=== PATIENT | male | born 1960 | race Caucasian/White ===

== ENCOUNTER 2021-12-23 09:01 | Outpatient (CLI) | payer OTHER, SELFPAY ==
--- NOTE | 2021-12-23 09:15 | CRLHL7_ITS ---
For Patients: As a result of the Century Cures Act, medical imaging exams and procedure reports are released immediately into your electronic medical record. You may view this report before your referring provider. If you have questions, please contact your health care provider. Indication: Right hip pain. Comparison: None. Procedure : Informed consent was obtained. The site was marked. Time-out was performed. The skin of the right hip was cleansed with ChloraPrep. A sterile drape was placed. 8 cc of 1 percent lidocaine was administered for superficial anesthesia. Subsequently a 22 gauge spinal needle was introduced into the right hip joint under intermittent fluoroscopic guidance. Injection of 6 cc nonionic Omnipaque 240 contrast confirmed intra-articular location. Subsequently 11 cc of dilute gadolinium were injected. The needle was removed and hemostasis achieved with direct pressure. A dressing was placed. The patient tolerated the procedure well without immediate complication and was immediately sent to MRI for imaging. Total fluoroscopy time 35 seconds. Impression: Successful fluoroscopically guided right hip arthrogram for MRI. Dictated by Benedict Springer MD @ 12/23/2021 10:25:50 AM (Electronically Signed)
--- NOTE | 2021-12-23 10:15 | MR_ITS ---
[address] [address] Phone:?[phone] Fax:?[phone] Referring Physician Information: John Telles M.D. [id number] [facility] [address] Phone:?[phone] Fax:?[phone] Patient:?Donnell Owen D.O.B:?1960 Sex:?Male Phone:?[phone] [facility] MRN:?[id number] Exam Date:?12/23/2021 ? EXAM: MR ARTHROGRAM of the RIGHT HIP CLINICAL INFORMATION: Male, 61 years old, with right hip pain. INDICATION: Evaluate for labral tear. PRIOR SURGERY: None reported. PLAIN FILMS: None available. COMPARISONS: No prior MRIs available. TECHNICAL INFORMATION: Exam performed after injection of gadolinium-based contrast into the right hip joint, reported separately. Using a 1.5T MR scanner: coronals: PD, T2, T1FS sagittals: PD, T2, T1FS axial obliques: PD axials: PDFS coronals of pelvis: T1, STIR SEDATION: None. CONTRAST: No intravenous contrast was administered. FINDINGS: Hip joint: Gadolinium-based contrast distends the hip joint, reflecting successful arthrography. Mild to moderate generalized thinning of articular cartilage throughout the right hip joint, without convincing full-thickness chondral defect/loss. No intra-articular bodies. Labrum: Intrasubstance degeneration and complex tearing is present within the anterior through posterosuperior labrum (axial PD oblique series 8 images 7-12). This is associated with a complex posterosuperior parameniscal cyst measuring 1.1 x 1.1 x 2.9 cm (axial PDFS series 9 image 8 and coronal STIR series 3 image 19). Proximal femur: Broad-based avascular necrosis, which involves nearly the entire femoral head, bilaterally, extending to the femoral necks (coronal T1 series 2 images 13-18). This is associated with moderate-marked bone marrow edema throughout the right femoral head and neck, with the appearance of subtle subchondral fracturing in the superolateral aspect of the femoral head (coronal PD series 6 image 13 and coronal STIR series 3 images 12-19). Mild marginal osteophytosis. There is loss of normal femoral head/neck junction offset with mild cam morphology anterosuperiorly. The maximum angle measures 65? (axial PD oblique series 8 image 11). Acetabulum: Mild subchondral edema is present in the periphery of the acetabulum with mild/moderate marginal osteophytosis. No stress/occult fracture or periacetabular ossicle. Version: Normal acetabular anteversion. Coverage: Right lateral center edge (CE) angle measures approximately 23? (normal 25?-39?), midline coronal series 6 image 12, corrected for pelvic obliquity. Ligamentum teres: Ligamentum teres is intact and unremarkable. Iliofemoral ligament: The iliofemoral ligament is intact without thickening. Pelvis osseous structures: Sacrum: No stress/insufficiency fractures or marrow edema/pathology. Sacroiliac joints: No demonstrable sacroiliitis. Pubic rami: No stress/insufficiency fractures or marrow edema/pathology. Symphysis pubis: No ongoing osteitis pubis. Myotendinous structures: Gluteus abductors: No convincing insertional tendinopathy or tear of gluteus minimus or medius. Adductors: No demonstrable tendinopathy or strain/tear. Hamstrings: Moderate marked common hamstrings tendinopathy with intermediate grade partial-thickness deep surface tearing, bilaterally (right greater than left (coronal STIR series 3 images 22-25). Flexors: Intact iliopsoas and rectus femoris, without strain/tear. External rotators: Intact, without demonstrable ischiofemoral impingement. Gluteal aponeurotic fascia and IT band: Unremarkable. Bursae: No demonstrable trochanteric, iliopsoas, or iliopectineal bursitis. Intrapelvic contents: Free fluid: No free fluid seen within the pelvis. Pelvic viscera: No discrete intrapelvic mass is identified. Lymph nodes: No lymphadenopathy by MRI size criteria. Neurovascular structures: No discrete cyst, mass or other compression upon the portions visualized of sciatic or femoral nerves. Lumbar spine:?Disc desiccation and moderate disc height loss is present at L5- S1. IMPRESSION: 1. 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 There is moderate-marked bone marrow edema throughout the right femoral head and neck with the suggestion of subtle subchondral fracturing in the superolateral aspect of the femoral head. 2. Mild osteoarthritis of the right hip joint. 3. Moderate-marked common hamstrings tendinopathy with intermediate grade partial-thickness deep surface tearing, bilaterally, right greater than left. 4. Intrasubstance degeneration and complex tearing of the anterior through posterosuperior labrum with a complex posterosuperior paralabral cyst measuring 1.1 x 1.1 x 2.9 cm. 5. Moderate lower lumbar spondylosis at L5-S1, which is incompletely evaluated on this study. Further evaluation with a dedicated lumbar spine MRI could be considered, as clinically indicated. BC Electronically signed on 12/23/2021 1:52:00 PM by Jesus Presley M.D.
== END 2021-12-23 09:02 | disposition home or self-care (01) ==
LOC: RAD 09:01
PROVIDERS: PCP Family Medicine; Visit Provider Orthopaedic Surgery
DX: M25.551 Pain in right hip (principal); R25.1 Tremor, unspecified; M16.11 Unilateral primary osteoarthritis, right hip; M47.896 Other spondylosis, lumbar region; S73.101A Unspecified sprain of right hip, initial encounter
CPT/HCPCS: 20610; 73722; 77002; A9575; Q9966

== ENCOUNTER 2022-03-06 09:42 | Outpatient (REF) | payer OTHER, SELFPAY | END 2022-03-06 09:43 | disposition home or self-care (01) | LOC: NPLBINS 09:42 | PROVIDERS: PCP Family Medicine; Visit Provider Orthopaedic Surgery | DX: Z01.818 Encounter for other preprocedural examination (principal) | CPT/HCPCS: 36415; 86850; 86900; 86901 ==

== ENCOUNTER 2022-03-08 06:50 | Day surgery (SDC) | payer OTHER, SELFPAY ==
[2022-03-08] VITALS (25 sets, daily range): BP systolic 117–164; BP diastolic 73–102; PULSE 79–98; RESP 16–18; TEMP 35.6–36.7; O2SAT 6–100; BMI 30.2
[2022-03-08] MEDS: ACETAMINOPHEN 500 MG TABLET 1000 MG PO ×3 (07:08→19:25)
[2022-03-08] MEDS: CELECOXIB 200 MG CAPSULE PO ×2 (07:08→20:42)
[2022-03-08] MEDS: OXYCODONE (CR) 10 MG TAB.ER.12H PO (07:08)
[2022-03-08] MEDS: SODIUM CHLORIDE 0.9 % (FLUSH) 10 ML SYRINGE IVF (07:15)
[2022-03-08] MEDS: LACTATED RINGERS 1000 ML 1,000 ML 100 ML IV ×2 (07:15→09:10)
--- NOTE | 2022-03-08 07:53 | SUR.PREOP ---
TIME?OUT:?0754 PT/Anyi SINGER RN/Shyam BRIAN CRNA VERIFICATION?OF?SURGICAL?SITE,?PROCEDURE,?AND?CONSENT OBTAINED?PRIOR?TO?INVASIVE?PROCEDURE.
[2022-03-08] MEDS: MIDAZOLAM HCL 1 MG/ML inj IVP (07:56)
[2022-03-08] MEDS: fentaNYL 100 MCG/2 ML inj IVP (07:56)
--- NOTE | 2022-03-08 08:15 | CRLHL7_ITS ---
For Patients: As a result of the Century Cures Act, medical imaging exams and procedure reports are released immediately into your electronic medical record. You may view this report before your referring provider. If you have questions, please contact your health care provider. INDICATION: Follow up hip arthroplasty. Intraoperative evaluation. TECHNIQUE: Fluoroscopically guided intraoperative evaluation of the right hip. FINDINGS: 54.7 seconds fluoroscopy time utilized intraoperatively. Two spot views of the right hip were obtained demonstrating a right hip arthroplasty. IMPRESSION: Intraoperative right hip arthroplasty. 54.7 seconds fluoroscopy time utilized. Dictated by Malik Erazo MD @ 03/08/2022 11:01:25 AM (Electronically Signed)
--- NOTE | 2022-03-08 08:54 | W.PM.NB ---
Nerve Block Nerve Block Time Seen by Provider: 08:15 Date Seen: 03/08/22 Type of block requested by surgeon for post-operative analgesia: EVELYN/LFCN Side: right Time out performed: Yes Verification of patient name: Yes Verification of date of : Yes Site marking: site marked Name of person performing procedure: Benjaimn Fish Continuous monitoring Was continuous monitoring of O2 sat, B/P, monitor car operator, recorded every 15 minutes?: Yes Procedure Checklist: sterile prep, needles and gloves Ultrasound guided. Images saved: Yes Medications given in 5ml increments after negative aspiration: Ropivicaine %: 0.5 mL: 30 Needle gauge: 20 Decadron (mg): 10 Precedex (mcg): 25 Patient tolerated procedure well: Yes Additional comments: Injected in 5ml increments after negative aspiration. Block Charges Block Charge (with Pro Fee): Other Periph Nerve Block Use of Ultrasound Machine for Block: Yes- US Guidance/pain block
--- NOTE | 2022-03-08 09:09 | W.ANESCHARGE ---
Anesthesia Charges Start Date/Time Anesthesia Start Date: 03/08/22 Anesthesia Start Time: 08:27 Stop Date/Time Anesthesia Stop Date: 03/08/22 Anesthesia Stop Time: 10:57 Summary Emergency: No
--- NOTE | 2022-03-08 10:23 | CRLHL7_ITS ---
For Patients: As a result of the Century Cures Act, medical imaging exams and procedure reports are released immediately into your electronic medical record. You may view this report before your referring provider. If you have questions, please contact your health care provider. INDICATION: Follow up right hip arthroplasty. TECHNIQUE: AP pelvis and cross table lateral view of the right hip. COMPARISON: Correlation is made with intraoperative images from the same date. FINDINGS: Right hip arthroplasty. The components are adequately aligned and well seated. Air within the soft tissues of the proximal lateral thigh. IMPRESSION: Right hip arthroplasty. The components are adequately aligned and well seated. Dictated by Malik Erazo MD @ 03/08/2022 11:41:12 AM (Electronically Signed)
--- NOTE | 2022-03-08 10:26 | PM.ORPRC ---
Procedure Note Date of procedure: 03/08/22 Procedure: SURGEON: John Telles MD VAMP PRESSER: Andra Ramírez PA-C, AMADA Higgins PREOPERATIVE DIAGNOSIS: Right hip osteonecrosis/osteoarthritis POSTOPERATIVE DIAGNOSIS: Right hip osteonecrosis/osteoarthritis NAME OF OPERATION: Right total hip arthroplasty IMPLANTS: 1. [employer] # 56 sector ingrowth cup 2. 36 x 56 +4 neutral polyethylene 3. Actis # 9 standard collared ingrowth stem 4. 36 + 5 ceramic femoral head ANESTHESIA: General ESTIMATED BLOOD LOSS: 200 cc COMPLICATIONS: None SPECIMENS: None DRAINS: None PREOPERATIVE ANTIBIOTICS: Ancef 2 grams INDICATIONS: The patient is a 62-year-old with a longstanding history of severe, unrelenting right hip pain secondary to end-stage right hip osteoarthritis. Despite appropriate nonoperative management, including activity modification, use of an assist device, anti-inflammatories, [id number] pain medication, physical therapy and injections, they continue to have pain and disability. Operative intervention was offered. The risks, benefits and expected outcomes were discussed in detail. These included but were not limited to: Infection, bleeding, injury to blood vessel or nerve, venous thromboembolism. All questions were answered to their satisfaction. Use of an medical assistant supervisor was necessary throughout the case for patient positioning and safety, soft tissue retraction and closure. PROCEDURE: The patient was placed supine on the [place] table. General anesthesia was administered. The medical assistant supervisor made sure the patient was properly positioned. The right hip was prepped and draped in the usual sterile fashion. The image intensifier was brought in for a perfect AP pelvis and a perfect double tear drop AP view of each hip which were used for intraoperative templating with our fluoroscopic guide. An oblique incision was made 3 cm distal and 3 cm lateral to the anterior superior iliac spine. The medical assistant supervisor retracted the soft tissues to protect them. Subcutaneous dissection was taken with electrocautery to the superficial fascia. The fascia was divided in line with the incision. Blunt dissection was carried medially to the tensor fascia tiara and sartorius interval. Deep dissection was carried with electrocautery. The circumflex vessels were cauterized and divided. The capsule was exposed and then divided in a T-fashion, tagged with #1 Ethibond sutures. Retractors were placed in the joint, held by the medical assistant supervisor. The corkscrew was placed in the femoral head. The neck cut was made in the subcapital region. We made a second neck cut more distal. The napkin ring of bone was removed. The femoral head was removed intact. Acetabular retractors were placed, held by the medical assistant supervisor. The labrum was sharply debrided. The capsule was released. The 43 mm reamer was used to the true medial wall. We then enlarged in 2 mm increments using the image intensifier for our reamer placement. We impacted the cup which had excellent purchase. We placed the hole eliminator and the polyethylene. Attention was then turned to the proximal femur. The limb was placed in 140 degrees of external rotation, maximum extension and adduction. A significant amount of time was spent releasing the capsule to allow us to deliver the femur into the wound and complete the femoral side safely. Retractors were held by the medical assistant supervisor throughout the femoral preparation. The spreader box operator and canal finder were used. Broaches were used to a stable size. The calcar reamer was used. Trial components were placed. The hip was reduced and was found to be stable with appropriate soft tissue tension. Length and offset had been nicely restored using the image intensifier and our fluoroscopic guide. Trial components were removed. The stem was impacted. We placed the femoral head. Again, the hip was reduced and was found to be stable with appropriate soft tissue tension. Length and offset had been nicely restored. The medical assistant supervisor did a three minute dilute Betadine solution soak. The medical assistant supervisor irrigated the wound with 3 liters of normal saline via pulse lavage. The medical assistant supervisor repaired the anterior capsule with a #1 Vicryl and our previously placed Ethibond sutures. The medical assistant supervisor closed the fascia over the tensor fascia tiara with a #1 PDO Stratafix, subcutaneous tissues with 2-0 Vicryl, skin with a running 3-0 Stratafix and glue. A dry dressing was applied by the medical assistant supervisor. Sponge and needle counts were correct x 2. The patient tolerated the procedure well; there were no apparent complications. They were awakened and extubated in the operating room, sent to the Post-Anesthesia Care Unit in satisfactory condition. PLAN: 1. The patient will be mobilized with physical therapy, weight-bearing as tolerates 2. Xarelto x 5 days then aspirin x 30 days will be used for DVT prophylaxis 3. The patient will be discharged once medically appropriate
[2022-03-08] MEDS: fentaNYL 100 MCG/2 ML inj 50 MCG IVP (11:02)
[2022-03-08] MEDS: LACTATED RINGERS 1000 ML 1,000 ML 75 ML IV (12:49)
[2022-03-08] MEDS: OXYCODONE 5 MG TABLET PO ×5 (12:55→22:43)
--- NOTE | 2022-03-08 14:14 | PC.NURSE ---
End of shift note: Patient was a right MATTIE today. Returned to M/S at 1130 today. Denies nausea. Pain controlled with PO medications. No void yet. Taking PO fluids and food. Worked with PT and up to chair with assist of 1 and walker. PIV in left forearm patent and intact. LR running at 75ml/hr. Incision is clean, dry and intact. Lung sounds clear. Hypoactive bowel sounds. LBM 03/07/22. Plans to return home with help of tomorrow.
[2022-03-08] MEDS: CEFAZOLIN 2 GM in 0.9 % SODIUM CHLORIDE Mini-bag 100 ML IVPB ×2 (15:29→22:41)
--- NOTE | 2022-03-08 15:44 | PM.IMCN1 ---
Date of Consult Patient: Dilip Patient Consult date: 03/08/22 Primary Care Provider: Darren Thompson MD Consult Narrative Reason for consult: Assist with postoperative management of medical conditions Narrative: Donnell Owen is a 62 year old man with known bilateral hip avascular necrosis and osteoarthritis, with significant pain on the right compared to the left. No injury predating this avascular necrosis. On the other hand does drink alcohol daily and it is suspected that the avascular necrosis is in consequence to the same. Pain became particularly symptomatic and problematic in September of 2021 has only worsened over time. Undergoes elective right total hip arthroplasty today. Estimated blood loss listed as 200 mL. Pain is adequately controlled at this time. Tolerating gradual increase in activities at this juncture. Review of Systems Status of ROS: Reports: 10 or more systems reviewed and unremarkable except as noted in History and below Narrative: Denies chest heaviness, pressure, tightness, or pain. Denies cough, dyspnea at rest, dyspnea with exertion, paroxysmal nocturnal dyspnea, or orthopnea. Denies syncope or near-syncope. Denies dependent edema. Denies palpitations or chest fluttering. Bowel and bladder function are satisfactory. Denies blood loss of any sort. No recent trauma or injury. No recent febrile illness. No recent gout attack. Denies fevers, rigors, diaphoresis. Denies myalgias or arthralgias. No skin changes or rashes. Denies any focal motor neurologic deficits. Denies polyuria, polydipsia, polyphagia. Denies heat or cold intolerance. Denies any limitations in ability to carry out desired activities except for the hip pain. Twice retired. 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 Lives with his . Designates his as his power of workers compensation defense attorney for health should that be required. Requests full resuscitation in the event of cardiopulmonary demise in the hospital, adding that he does not wish to be kept alive in a persistent vegetative state. Tells me that he has cut back on his alcohol consumption. Denies any alcohol withdrawal symptoms. [facility] Medical History Abnormal liver enzymes Anxiety Chronic anemia Chronic leukopenia Daily consumption of alcohol Depression Diverticulosis Hepatic steatosis History of renal calculi (~06/2013) Internal hemorrhoid Pseudogout Surgical History History of bunionectomy of both great toes (~2017) Status post left rotator cuff repair (~2016) Status post vasectomy Family History Mother Rheumatoid arthritis Father Lung cancer Brother Rapid heart beat Social History Smoking Status: Never smoker Do you use any of these nicotine containing products: None Second hand tobacco smoke exposure: No How often do you have a drink containing alcohol: 4 or more times a week Alcohol type: beer and wine How many standard drinks containing alcohol do you have on a typical day: 1 or 2 How often do you have six or more drinks on one occasion: Never AUDIT-C Alcohol total score: 4 Non-prescribed substance use: denies use Caffeine: Yes (coffee, 1-2 cups/morning) Are you now , , , , never or living with a partner: Social isolation score (0-1 are the most socially isolated patients): 1 Meds Home Medications and Allergies Home Medications Medication Instructions Recorded Confirmed Type colchicine 0.6 mg tablet 0.6 mg PO DAILY PRN 12/13/21 03/08/22 History indomethacin 50 mg capsule 50 mg PO TID PRN 12/13/21 03/08/22 History bupropion HCl 150 mg 24 hr tablet, 150 mg PO QAM 01/10/22 03/08/22 History extended release citalopram 10 mg tablet 10 mg PO QDAY 01/10/22 03/08/22 History ascorbic acid (vitamin C) 1,000 mg 2 g PO DAILY 03/08/22 03/08/22 History capsule biotin 10 mg tablet 10 mg PO HS 03/08/22 03/08/22 History cholecalciferol (vitamin D3) 125 250 mcg PO BID 03/08/22 03/08/22 History mcg (5,000 unit) capsule coenzyme Q10 100 mg capsule (Co 100 mg PO DAILY 03/08/22 03/08/22 History Q-10) cyanocobalamin (vitamin B-12) 1,000 mcg PO BID 03/08/22 03/08/22 History 1,000 mcg tablet cyclobenzaprine 10 mg tablet 10 mg PO BID PRN 03/08/22 03/08/22 History flaxseed oil 1,000 mg capsule 1,000 mg PO BID 03/08/22 03/08/22 History folic acid 400 mcg tablet 400 mcg PO DAILY 03/08/22 03/08/22 History garlic 1,500 mg capsule 1,500 mg PO DAILY 03/08/22 03/08/22 History glucosamine [id number] 2 tab PO HS 03/08/22 03/08/22 History chriss 1,500 mg-400 unit-100 mg tablet krill oil 500 mg capsule 500 mg PO DAILY 03/08/22 03/08/22 History levocarnitine 500 mg tablet 1,000 mg PO DAILY 03/08/22 03/08/22 History (L-Carnitine) loratadine 10 mg tablet (Allergy 10 mg PO DAILY PRN 03/08/22 03/08/22 History Relief (loratadine)) lutein 20 mg capsule 20 mg PO DAILY 03/08/22 03/08/22 History lysine 1,000 mg tablet 1,000 mg PO BID 03/08/22 03/08/22 History magnesium oxide 400 mg (241.3 mg 400 mg PO DAILY 03/08/22 03/08/22 History magnesium) tablet melatonin 10 mg capsule 10 mg PO HS 03/08/22 03/08/22 History meloxicam 15 mg tablet 15 mg PO DAILY 03/08/22 03/08/22 History milk thistle 500 mg capsule 1,000 mg PO DAILY 03/08/22 03/08/22 History multivitamin 1 tab PO DAILY 03/08/22 03/08/22 History tumeric 100 mg-eloisa 150 mg-olive 1 cap PO BID 03/08/22 03/08/22 History 50 mg-oreg 150 mg-caprylate capsule vitamin B complex (B-Complex 2 tab PO HS 03/08/22 03/08/22 History tablet) vitamin K2 100 mcg capsule 100 mcg PO DAILY 03/08/22 03/08/22 History zinc gluconate 50 mg tablet 50 mg PO DAILY 03/08/22 03/08/22 History Allergies Allergy/AdvReac Type Severity Reaction Status Date / Time No Known Allergies Allergy Unknown Verified 03/08/22 06:58 Exam Narrative: Exam Narrative: No acute distress. Appears comfortable. Awake, alert, oriented to self, place, time, situation. Articulate, cooperative. Mood and affect are congruent. Hearing and vision are grossly normal. Midline nasal septum. Dentition in fair repair. Does have somewhat of a tight posterior oropharyngeal aperture. Neck is supple. Midline trachea. Normal thyroid. No JVD, hepatojugular reflux, or carotid bruits. No lymphadenopathy. Lungs are clear to auscultation without wheezing, rhonchi, or rales. No CVA tenderness. Heart tones with regular rhythm, normal S1-S2, without murmur, gallop, or rub. PMI is not laterally displaced. Abdomen with active bowel sounds, soft, nontender. Already able to transfer from bed to chair and chair back to bed with standby assist. No tremor, asterixis, or ataxia. Const: Vital Signs, click to edit/add: Vital Signs - 24 hr 03/08/22 07:16 03/08/22 07:55 03/08/22 08:00 Temperature 98.1 F Pulse Rate 93 90 92 Pulse Rate [Pulse Oximeter] Respiratory Rate 18 18 16 Blood Pressure 157/102 H 163/94 H 152/94 H Blood Pressure [Ri ght Arm] Pulse Oximetry 100 95 97 Oxygen Delivery Me thod Room Air Nasal Cannula Nasal Cannula Oxygen Flow Rate 2 2 03/08/22 08:05 03/08/22 08:15 03/08/22 10:53 Temperature 98.1 F Pulse Rate 93 87 88 Pulse Rate [Pulse Oximeter] Respiratory Rate 16 16 18 Blood Pressure 149/97 H 150/92 H 123/93 H Blood Pressure [Ri ght Arm] Pulse Oximetry 97 97 96 Oxygen Delivery Me thod Nasal Cannula Nasal Cannula Room Air Oxygen Flow Rate 2 2 03/08/22 11:00 03/08/22 11:05 03/08/22 11:15 Temperature Pulse Rate 88 87 84 Pulse Rate [Pulse Oximeter] Respiratory Rate 18 18 18 Blood Pressure 164/90 H 164/93 H 133/86 Blood Pressure [Ri ght Arm] Pulse Oximetry 95 96 98 Oxygen Delivery Me thod Room Air Room Air Room Air Oxygen Flow Rate 03/08/22 11:10 03/08/22 11:20 03/08/22 11:30 Temperature 98 F 96.1 F L Pulse Rate 85 86 85 Pulse Rate [Pulse Oximeter] Respiratory Rate 18 18 16 Blood Pressure 139/101 H 140/91 H Blood Pressure [Ri ght Arm] 147/86 H Pulse Oximetry 95 97 Oxygen Delivery Me thod Room Air Room Air Room Air Oxygen Flow Rate 03/08/22 11:45 03/08/22 12:00 03/08/22 12:15 Temperature Pulse Rate Pulse Rate [Pulse Oximeter] 84 79 86 Respiratory Rate 16 16 16 Blood Pressure Blood Pressure [Ri ght Arm] 153/93 H 133/83 145/86 H Pulse Oximetry 94 95 96 Oxygen Delivery Me thod Room Air Room Air Room Air Oxygen Flow Rate 03/08/22 12:30 03/08/22 13:00 03/08/22 13:30 Temperature 97.1 F L 97.1 F L Pulse Rate Pulse Rate [Pulse Oximeter] 85 85 79 Respiratory Rate 16 16 16 Blood Pressure Blood Pressure [Ri ght Arm] 147/73 H 157/91 H 117/87 Pulse Oximetry 6 L 96 96 Oxygen Delivery Me thod Room Air Room Air Room Air Oxygen Flow Rate 03/08/22 14:30 Temperature Pulse Rate Pulse Rate [Pulse Oximeter] 89 Respiratory Rate 16 Blood Pressure Blood Pressure [Ri ght Arm] 155/90 H Pulse Oximetry 96 Oxygen Delivery Me thod Room Air Oxygen Flow Rate Assessment and Plan Assessment and plan (1) Status post right hip replacement: Status: Acute (2) Avascular necrosis of bones of both hips: Status: Acute (3) Daily consumption of alcohol: Problem comment: 1 beer and 2 glasses of wine per patient on 03/08/2022. Denies alcohol withdrawal symptoms. Status: Acute Assessment and Plan: 1. Advised patient to cut back on his alcohol consumption to consuming 1 drink per day at the most. (4) Osteoarthritis of right hip: Status: Acute (5) Right hip pain: Status: Acute Plan 1. Reviewed impression with patient and . 2. Answered patient's and 's questions to their satisfaction. 3. Agree with postop venous thromboembolism prophylaxis efforts. 4. Agree with perioperative antibiotic use as well. 5. Will monitor for alcohol withdrawal. 6. Will follow with Orthopedic surgery while patient is in the hospital.
[2022-03-08] MEDS: MELATONIN 3 MG TABLET 9 MG PO (20:43)
[2022-03-08] MEDS: CYANOCOBALAMIN (VITAMIN B-12) 500 MCG TABLET 1000 MCG PO (20:43)
[2022-03-08] MEDS: LORazepam 0.5 MG TABLET PO (20:43)
[2022-03-08] MEDS: SENNOSIDES 1 TAB TABLET 2 TAB PO (20:43)
[2022-03-08] MEDS: CITALOPRAM HYDROBROMIDE 20 MG TABLET 10 MG PO (20:43)
--- NOTE | 2022-03-08 21:38 | PC.NURSE ---
Shift Note [id number]: Pt friendly and cooperative. VS WNL and LS COA. Afebrile. Rates pain 6/10, PRN Oxycodone given. Surgical dressing to right hip C,D,&I with active ice in place. Tolerates regular diet without difficulty.
[2022-03-09] MEDS: ACETAMINOPHEN 500 MG TABLET 1000 MG PO ×2 (01:45→07:49)
[2022-03-09] MEDS: OXYCODONE 5 MG TABLET PO ×4 (01:45→12:29)
[2022-03-09 03:00] VITALS: BP 162/96; PULSE 86; PULSE 89; RESP 16; TEMP 36.4; O2SAT 95
[2022-03-09] MEDS: CYCLOBENZAPRINE HCL 10 MG TABLET PO (04:17)
[2022-03-09] MEDS: CEFAZOLIN 2 GM in 0.9 % SODIUM CHLORIDE Mini-bag 100 ML IVPB (06:10)
[2022-03-09 07:10] LABS: Basophils Absolute Auto 0.01 K/uL (0.00-0.30); Basophils Percent Auto 0.1 % (0.0-3.0); Hematocrit 30.5 % (37.0-53.0); Hemoglobin* 10.7 gm/dL (13.5-17.5); Immature Granulocytes Abs Auto 0.01 K/uL (0.00-0.30); Immature Granulocytes Pct Auto 0.1 %; Lymphocytes Percent Auto 11.1 % (20-44); Mean Corpuscular HGB Conc 35 gm/dL (32-36); Mean Corpuscular Hemoglobin 34 pg (26-34); Mean Corpuscular Volume 97 fL (80-100); Neutrophils Percent Auto 77.7 % (42.0-72.0); Platelet Count* 239 K/uL (140-440); RDW Coefficient of Variation % 12.3 % (11.5-15.5); Red Blood Count 3.15 m/uL (4.30-5.90); White Blood Count* 8.37 K/uL (4.50-11.00)
[2022-03-09 07:15] LABS: Slide Review Reflex No
[2022-03-09 07:27] LABS: Potassium* 4.3 mmol/L (3.6-5.1); Sodium* 136 mmol/L (135-149)
[2022-03-09 07:30] VITALS: BP 145/83; PULSE 101; PULSE 95; RESP 16; TEMP 37.3; O2SAT 95
[2022-03-09 07:30] LABS: Blood Urea Nitrogen* 11 mg/dL (7-30); Creatinine* 0.6 mg/dL (0.5-1.5); Est. Creatinine Clearance* 73.15; Estimated Glomerular Filt Rate 108 ml/min
--- NOTE | 2022-03-09 07:41 | PC.NURSE ---
23-07: pleasant and cooperative. Rates pain in right hip 4-7/10, see eMar. SBA with gb and walker, tolerates activity well. VSS. Dressing to hip CDI, active ice on.
--- NOTE | 2022-03-09 08:42 | PM.ORPN ---
Subjective Subjective Time Seen by Provider: 07:30 Date Seen: 03/09/22 Principal diagnosis: Status post right hip replacement Interval history: Jayden has thigh pain today. He is otherwise comfortable and plans to discharge to home. Ortho Exam Narrative Exam Narrative: Alert and oriented x3. Patient is in no acute distress. Converses without labored breathing. Hearing is grossly intact. Ambulates with a walker. Examination of the right hip shows dressing is intact. No erythema or warmth or sign of infection. Exquisite thigh tenderness. Minimal edema about the hip. Bilateral calves are soft and nontender. CMS intact right lower extremity. Const Vital Signs, click to edit/add: Vital Signs - 24 hr 03/08/22 10:53 03/08/22 11:00 03/08/22 11:05 Temperature 98.1 F Pulse Rate 88 88 87 Pulse Rate [Left Apical] Pulse Rate [Pulse Oximeter] Respiratory Rate 18 18 18 Blood Pressure 123/93 H 164/90 H 164/93 H Blood Pressure [Right Arm] Pulse Oximetry 96 95 96 Oxygen Delivery Method Room Air Room Air Room Air 03/08/22 11:15 03/08/22 11:10 03/08/22 11:20 Temperature 98 F Pulse Rate 84 85 86 Pulse Rate [Left Apical] Pulse Rate [Pulse Oximeter] Respiratory Rate 18 18 18 Blood Pressure 133/86 139/101 H 140/91 H Blood Pressure [Right Arm] Pulse Oximetry 98 95 97 Oxygen Delivery Method Room Air Room Air Room Air 03/08/22 11:30 03/08/22 11:45 03/08/22 12:00 Temperature 96.1 F L Pulse Rate 85 Pulse Rate [Left Apical] Pulse Rate [Pulse Oximeter] 84 79 Respiratory Rate 16 16 16 Blood Pressure Blood Pressure [Right Arm] 147/86 H 153/93 H 133/83 Pulse Oximetry 94 95 Oxygen Delivery Method Room Air Room Air Room Air 03/08/22 12:15 03/08/22 12:30 03/08/22 13:00 Temperature 97.1 F L Pulse Rate Pulse Rate [Left Apical] Pulse Rate [Pulse Oximeter] 86 85 85 Respiratory Rate 16 16 16 Blood Pressure Blood Pressure [Right Arm] 145/86 H 147/73 H 157/91 H Pulse Oximetry 96 6 L 96 Oxygen Delivery Method Room Air Room Air Room Air 03/08/22 13:30 03/08/22 14:30 03/08/22 15:00 Temperature 97.1 F L Pulse Rate Pulse Rate [Left Apical] Pulse Rate [Pulse Oximeter] 79 89 90 Respiratory Rate 16 16 16 Blood Pressure Blood Pressure [Right Arm] 117/87 155/90 H Pulse Oximetry 96 96 Oxygen Delivery Method Room Air Room Air 03/08/22 15:30 03/08/22 16:30 03/08/22 17:30 Temperature 97.1 F L 96.8 F L Pulse Rate Pulse Rate [Left Apical] 96 Pulse Rate [Pulse Oximeter] 90 90 Respiratory Rate 16 16 16 Blood Pressure Blood Pressure [Right Arm] 138/86 126/80 145/98 H Pulse Oximetry 94 97 98 Oxygen Delivery Method Room Air Room Air Room Air 03/08/22 19:00 03/08/22 23:00 03/08/22 23:00 Temperature 98.1 F 97.9 F Pulse Rate Pulse Rate [Left Apical] 89 Pulse Rate [Pulse Oximeter] 98 98 Respiratory Rate 16 16 16 Blood Pressure Blood Pressure [Right Arm] 140/90 H 152/91 H Pulse Oximetry 97 95 Oxygen Delivery Method Room Air Room Air 03/09/22 03:00 Temperature 97.5 F L Pulse Rate Pulse Rate [Left Apical] 89 Pulse Rate [Pulse Oximeter] 86 Respiratory Rate 16 Blood Pressure Blood Pressure [Right Arm] 162/96 H Pulse Oximetry 95 Oxygen Delivery Method Room Air Documenting provider has reviewed patient's vital signs: yes Assessment and Plan Assessment and plan (1) Status post right hip replacement: Problem details: 03/08/2022 Status: Acute Assessment and Plan: Plan for discharge is today to home if they meet discharge criteria. DVT prophylaxis includes Xarelto 10 mg daily for total of 5 days, then aspirin 81 mg twice daily for 30 days, [place] stockings x1 month may remove for 1 hr per day, frequent ambulation Remove dressing 1 week. Observe wound and phone Orthopedics with any questions or concerns Use Ice on operative hip unrestricted. Return to clinic in 1 week with PA for a wound check Return to clinic in [address] Telles Minimize narcotic use. Wean off and discontinue soon as possible. Activities as tolerated. No strenuous activity. Attend outpt PT (2) Avascular necrosis of bones of both hips: Status: Acute (3) Daily consumption of alcohol: Problem details: 1 beer and 2 glasses of wine per patient on 03/08/2022. Denies alcohol withdrawal symptoms. Status: Acute (4) Osteoarthritis of right hip: Status: Acute (5) Right hip pain: Status: Acute
[2022-03-09] MEDS: CYANOCOBALAMIN (VITAMIN B-12) 500 MCG TABLET 1000 MCG PO (08:58)
[2022-03-09] MEDS: MAGNESIUM OXIDE 400 MG TABLET PO (08:59)
[2022-03-09] MEDS: RIVAROXABAN 10 MG TABLET PO (08:59)
[2022-03-09] MEDS: CELECOXIB 200 MG CAPSULE PO (09:01)
[2022-03-09] MEDS: buPROPion XL 150 MG TABLET PO (09:01)
[2022-03-09] MEDS: SENNOSIDES 1 TAB TABLET 2 TAB PO (09:01)
[2022-03-09] MEDS: FOLIC ACID 1 MG TABLET PO (09:02)
[2022-03-09 09:49] VITALS: TEMP 37.6
--- NOTE | 2022-03-09 10:23 | SLP.EVAL ---
Social Work Note: Social work met with patient and to discuss discharge plan. Pt. explained that will be present at home to care for him, and he has a support system to call if needed. Pt. states that his home is arranged and prepared to meet his safety needs. Pt. has no further concerns at this time. Pt. and are aware that they can reach out to social work with any future concerns.
[2022-03-09 11:44] VITALS: BP 134/84; PULSE 100; PULSE 94; RESP 16; TEMP 37.6; O2SAT 94
--- NOTE | 2022-03-09 12:57 | PC.NURSE ---
discharge. pt has been very pleasant. right hip pain 4-810 he is getting po pain meds. he is eating, drinking and voiding with no problems. Denies nausea. Worked with PT and OT he is up to chair/BR with SBA, GB and walker. SL in left forearm patent and it was d/c intact. Incision is clean, dry and intact. active ice to the hip. went over discharge packet with pt went over medications, appointments, medications and instructions. pt went over and signed personal belonging sheet. he got a w/c ride to his car with all paperwork and belongings,
== END 2022-03-09 12:35 | disposition home or self-care (01) ==
LOC: OR 06:51 → MEDSURG 06:53
PROVIDERS: PCP Family Medicine; Visit Provider Orthopaedic Surgery
PROC: (CPT 27130; principal; 2022-03-08 08:15)
DX: M16.11 Unilateral primary osteoarthritis, right hip (principal); F10.90 Alcohol use, unspecified, uncomplicated; M90.552 Osteonecrosis in diseases classified elsewhere, left thigh; M90.551 Osteonecrosis in diseases classified elsewhere, right thigh; M25.551 Pain in right hip
CPT/HCPCS: 27130; 01214; 36415; 64450; 73501; 76000; 76942; 82565; 84132; 84295; 84520; 85025; 97110; 97116; 97161; 97165; 97535; A9270; C1776; J0330; J0690; J1100; J2250; J2405; J2704; J2795; J3010; J7120

== ENCOUNTER 2022-03-25 11:00 | Outpatient (RCR) | payer OTHER, SELFPAY | END 2022-03-25 13:17 | disposition home or self-care (01) | PROVIDERS: PCP Family Medicine; Visit Provider Orthopaedic Surgery | DX: M17.11 Unilateral primary osteoarthritis, right knee (principal); Z51.89 Encounter for other specified aftercare | CPT/HCPCS: 97110; 97140; 97162; 97164 ==

== ENCOUNTER 2023-02-07 10:01 | Outpatient (CLI) | payer OTHER, SELFPAY ==
--- NOTE | 2023-02-07 10:15 | MR_ITS ---
[address] [address] Phone:?[phone] Fax:?[phone] Referring Physician Information: John Telles M.D. [id number] [facility] [address] Phone:?[phone] Fax:?[phone] Patient:?Donnell Owen D.O.B:?1960 Sex:?Male Phone:?[phone] [facility] MRN:?[id number] Exam Date:?02/07/2023 EXAM: MRI of the RIGHT SHOULDER, without contrast CLINICAL HISTORY: Right shoulder pain. Evaluate for rotator cuff tear. COMPARISONS: Plain radiographs 01/25/2023 and 05/31/2019. TECHNICAL: MRI sequences of the right shoulder: Axials: PD, T2 Coronals: PD, STIR, T2 Sagittals: PD, T2 SEDATION: None CONTRAST: None FINDINGS: Bones: No fracture or suspicious bone marrow signal abnormality. Coracoacromial arch: Acromion: No os acromiale. Type II acromion. Acromiohumeral space: The bony distance is unremarkable. Acromioclavicular joint: No acute injury, arthropathy, or inferior hypertrophy. Coracoclavicular ligament: The coracoclavicular ligament is intact. Rotator cuff muscles/tendons: Supraspinatus: 2.5 cm in AP dimension full-thickness tear of the supraspinatus tendon insertion with proximal/medial tendon retraction to the level of the glenoid superimposed upon moderate supraspinatus tendinopathy. Moderate atrophy of the supraspinatus muscle. Infraspinatus: Mild to moderate tendinopathy. No muscular atrophy. Teres minor: The teres minor tendon and muscle are intact. Subscapularis: 1.5 cm in craniocaudad dimension by 3.0 cm in transverse dimension split longitudinal intrasubstance/interstitial tear within the subscapularis tendon superimposed upon moderate subscapularis tendinopathy. Moderate to marked atrophy of the subscapularis muscle. Labrum and glenohumeral joint: Ill-defined tearing of the entire labrum with a 5 x 8 x 9 mm inferior paralabral cyst and a similarly sized posteroinferior paralabral cyst. Physiologic amount of joint fluid. There is a 5 x 5 mm focus of near full-thickness chondral loss over the central portion of the glenoid. No convincing evidence of capsular edema or thickening although evaluation is suboptimal because of lack of joint distention. Proximal biceps tendon, long head and short heads: There is medial dislocation of the long head of the biceps tendon from the bicipital groove extending onto the lesser tuberosity and extending into the intrasubstance/interstitial split longitudinal subscapularis tendon tear. The short head is intact. Bursae: Subacromial/subdeltoid: The presence of fluid is not unexpected given full- thickness rotator cuff tendon tearing. Subcoracoid: No convincing subcoracoid bursal thickening/bursitis. IMPRESSION: 1. 2.5 cm in AP dimension full-thickness tear of the supraspinatus tendon insertion with proximal/medial tendon retraction to the level of the glenoid superimposed upon moderate supraspinatus tendinopathy. Moderate atrophy of the supraspinatus muscle. 2. 1.5 x 3.0 cm split longitudinal intrasubstance/interstitial tear within the subscapularis tendon superimposed upon moderate subscapularis tendinopathy. Moderate to marked atrophy of the subscapularis muscle. 3. Medial dislocation of the long head of the biceps tendon from the bicipital groove extending onto the lesser tuberosity and extending into the intrasubstance/interstitial split longitudinal subscapular tendon tear. 4. Mild to moderate infraspinatus tendinopathy. No infraspinatus muscular atrophy. 5. Ill-defined tearing of the entire labrum. 5 x 8 x 9 mm inferior paralabral cyst and a similarly sized posteroinferior paralabral cyst. 5 x 5 mm focus of near full-thickness chondral loss over the central portion of the glenoid. RCB Electronically signed on 02/07/2023 11:32:00 AM by Carlos Ramirez M.D.
== END 2023-02-07 10:02 | disposition home or self-care (01) ==
LOC: MRI 10:02
PROVIDERS: PCP Family Medicine; Visit Provider Orthopaedic Surgery
DX: M25.511 Pain in right shoulder (principal); M75.101 Unspecified rotator cuff tear or rupture of right shoulder, not specified as traumatic; S43.401A Unspecified sprain of right shoulder joint, initial encounter
CPT/HCPCS: 73221

== ENCOUNTER 2023-03-02 08:32 | Day surgery (SDC) | payer OTHER, SELFPAY ==
[2023-03-02] VITALS (15 sets, daily range): BP systolic 109–158; BP diastolic 66–91; PULSE 66–83; RESP 14–16; TEMP 36.1–36.8; O2SAT 93–99; BMI 30.3
[2023-03-02] MEDS: OXYCODONE (CR) 10 MG TAB.ER.12H PO (08:45)
[2023-03-02] MEDS: CELECOXIB 200 MG CAPSULE PO (08:45)
[2023-03-02] MEDS: SODIUM CHLORIDE 0.9 % (FLUSH) 10 ML SYRINGE IVF (08:45)
[2023-03-02] MEDS: LACTATED RINGERS 1000 ML 1,000 ML 100 ML IV ×2 (08:45→11:03)
[2023-03-02] MEDS: ACETAMINOPHEN 500 MG TABLET 1000 MG PO (08:45)
[2023-03-02] MEDS: fentaNYL 100 MCG/2 ML inj IVP (09:57)
[2023-03-02] MEDS: MIDAZOLAM HCL 1 MG/ML inj IVP (09:57)
--- NOTE | 2023-03-02 10:05 | SUR.PREOP ---
TIME?OUT:?0955 PT/Anyi SINGER RN/Neeta BRIAN MDA?VERIFICATION?OF?SURGICAL?SITE,?PROCEDURE,?AND?CONSENT OBTAINED?PRIOR?TO?INVASIVE?PROCEDURE.
[2023-03-02] MEDS: CEFAZOLIN 2 GM INJ IVP (10:30)
--- NOTE | 2023-03-02 10:39 | P.NB_ITS ---
Nerve Block Nerve Block Time Seen by Provider: 09:55 Date Seen: 03/02/23 Type of block requested by surgeon for post-operative analgesia: supraclavicular Side: right Time out performed: Yes Verification of patient name: Yes Verification of date of : Yes Site marking: site marked Name of person performing procedure: Abe Continuous monitoring Was continuous monitoring of O2 sat, B/P, cardiac cath technician, recorded every 15 minutes?: Yes Procedure Checklist: sterile prep, needles and gloves Ultrasound guided. Images saved: Yes Medications given in 5ml increments after negative aspiration: Ropivicaine %: 0.5 mL: 20 Needle gauge: 22 Decadron (mg): 10 Precedex (mcg): 25 Patient tolerated procedure well: Yes Block Charges Block Charge (with Pro Fee): Brachial Plexus Use of Ultrasound Machine for Block: Yes- US Guidance/pain block
--- NOTE | 2023-03-02 10:40 | W.ANESCHARGE ---
Anesthesia Charges Start Date/Time Anesthesia Start Date: 03/02/23 Anesthesia Start Time: 08:27 Stop Date/Time Anesthesia Stop Date: 03/02/23 Anesthesia Stop Time: 10:57
[2023-03-02] MEDS: EPINEPHrine 1 MG in SODIUM CHLORIDE IRRIG SOLUTION 3,000 ML 3001 MG IRRIGATION ×4 (10:53→11:18)
--- NOTE | 2023-03-02 12:21 | PM.ORPRC ---
Procedure Note Date of procedure: 03/02/23 Procedure: PREOPERATIVE DIAGNOSIS: Right shoulder rotator cuff tear, AC joint arthrosis, labral tearing, glenohumeral joint osteoarthritis, biceps tendinopathy POSTOPERATIVE DIAGNOSIS: Right shoulder rotator cuff tear, AC joint arthrosis, labral tearing, glenohumeral joint osteoarthritis, biceps tendinopathy NAME OF OPERATION: Right shoulder arthroscopic subacromial decompression, distal clavicle excision, mini open rotator cuff repair, extensive arthroscopic glenohumeral joint debridement, biceps tenodesis SURGEON: John Telles MD PLATER PRODUCTION: Prisca Ramírez PA-C ANESTHESIA: Supraclavicular block plus general endotracheal ESTIMATED BLOOD LOSS: 25 mL COMPLICATIONS: None SPECIMENS: None DRAINS: None PREOPERATIVE ANTIBIOTICS: Ancef 2 grams INDICATIONS: The patient is a 63-year-old with a history of right shoulder pain secondary to the above diagnoses. Despite appropriate non operative management, they continue to have symptoms. Operative intervention was recommended. The risks, benefits and expected outcomes were discussed in detail. These included but were not limited to: Infection, bleeding, injury to blood vessel or nerve, venous thromboembolism. All questions were answered to their satisfaction. PROCEDURE: A supraclavicular block was placed by Anesthesia. General anesthesia was administered. The patient was placed in the high beach chair position. The right shoulder was prepped and draped in the usual sterile fashion. The glenohumeral joint was infiltrated with 20 mL of normal saline with epinephrine. The posterior portal was established, the arthroscope was introduced. The anterior portal was established, Diagnostic arthroscopy was performed with findings as follows: The biceps has a marked amount of intra-articular tendinopathy. The labrum has advanced circumferential degenerative tearing. Articular surfaces on the humeral head are normal. Articular surfaces on the glenoid show a focal area of grade 3/4 change anteriorly. There are no loose bodies. There is a full-thickness tear of the supraspinatus and infraspinatus, with retraction. The biceps was tenotomized with the arthroscopic scissors. The stump was resected with the shaver. The labrum was circumferentially debrided with the shaver. Likewise, unstable chondral flaps on glenoid were debrided with the shaver. The arthroscope was placed in the subacromial space, the lateral portal was established. The Arthrex [place] was used to dissect the acromion free. The CA ligament was recessed off the anterior acromion, the AC joint was exposed. The acromioplasty was performed with the bur in the posterior portal. The bur was then placed in the lateral portal and the lateral and anterior aspect of the acromion were resected. The undersurface of the distal clavicle was resected through the lateral portal. Finally, the bur was placed in the anterior portal and the remainder of the distal clavicle was resected for a total of 10 mm. An accessory anterolateral portal was placed. The subacromial/subdeltoid bursa was aggressively debrided. There is a full-thickness tear of the supraspinatus and infraspinatus with retraction and minimal excursion. The scorpion was used to place a FiberLink in the leading edge of the rotator cuff both anteriorly and posteriorly. Arthroscopic instruments were removed. The accessory anterolateral portal was extended proximally and distally, subcutaneous dissection was taken with electrocautery to the deltoid. The deltoid was divided in line with its fibers. The static retractor was placed. The subacromial/subdeltoid bursa was debrided with the Ramos scissors. The greater and lesser tuberosities were debrided to punctate bleeding bone using the arthroscopic bur. Several mm of articular cartilage were removed, advancing the insertion of the rotator cuff medially. A FiberLink was passed several times through the biceps. A fiber tape was placed in upper border of the subscap in an inverted mattress fashion. These 3 sutures were placed into a SwiveLock anchor, just proximal to the bicipital groove, completing the subscap repair and biceps tenodesis. Three margin convergence sutures were placed. This advanced the rotator cuff anteriorly, partially covering the head. Two Arthrex [employer] SwiveLock anchors were placed just off the articular surface. Both limbs of the FiberWire and fiber tape were passed using the scorpion. We then proceeded with a lateral row of SwiveLock anchors x 2 crossing the FiberTape and incorporating the FiberWire and fiber link into each lateral row anchor. We tied the 2 central FiberWire sutures over the rotator cuff. This provides a reasonable, repair of the rotator cuff. The central portion of the superior head remains uncovered. The wound was irrigated with normal saline off the pump. The deltoid was repaired with an 0 Vicryl in an interrupted [id number] fashion. Subcutaneous tissues were closed with a 3-0 Vicryl. Skin was closed with a 3-0 Monocryl in a subcuticular fashion. A dry dressing, polar care and sling were applied. Sponge and needle counts were correct x2. The patient tolerated the procedure well. There were no apparent complications. They were carefully transferred to the hospital bed and taken to the postanesthesia care unit in satisfactory condition. PLAN: The patient will be discharged to home. Given the amount of retraction, a sling with an abduction pillow will be used. No active range of motion of the shoulder will be allowed for 6 weeks postoperatively. They can work on active range of motion of the elbow, wrist and fingers. They will follow up in the office next week for a wound check and an AP and transscapular Y-view of the shoulder prior to being seen.
--- NOTE | 2023-03-02 13:20 | W.ANESCHARGE ---
Anesthesia Charges Start Date/Time Anesthesia Start Date: 03/02/23 Anesthesia Start Time: 10:07 Stop Date/Time Anesthesia Stop Date: 03/02/23 Anesthesia Stop Time: 12:55
--- NOTE | 2023-03-02 13:34 | SUR.PHASEI ---
PATIENT MET DISCHARGE CRITERIA PER ANESTHESIA
== END 2023-03-02 15:05 | disposition home or self-care (01) ==
PROVIDERS: PCP Family Medicine; Visit Provider Orthopaedic Surgery
PROC: (CPT 23412; principal; 2023-03-02 10:30)
DX: M75.101 Unspecified rotator cuff tear or rupture of right shoulder, not specified as traumatic (principal); M19.011 Primary osteoarthritis, right shoulder; M75.21 Bicipital tendinitis, right shoulder; G89.18 Other acute postprocedural pain
CPT/HCPCS: 29826; 29823; 29824; 29828; 23412; 01630; 64415; 76942; A9270; C1713; J0171; J0330; J0690; J1100; J2250; J2371; J2405; J2704; J3010; J3490; J7120; L3670

== ENCOUNTER 2023-11-17 09:00 | Outpatient (RCR) | payer OTHER, SELFPAY | END 2023-11-17 14:53 | disposition home or self-care (01) | PROVIDERS: PCP Family Medicine; Visit Provider Physician Assistant | DX: Z98.890 Other specified postprocedural states (principal); Z51.89 Encounter for other specified aftercare | CPT/HCPCS: 97110; 97140; 97162; 97535 ==

== ENCOUNTER 2024-10-31 07:28 | Day surgery (SDC) | payer MEDICARE, OTHER, SELFPAY ==
[2024-10-31] VITALS (10 sets, daily range): BP systolic 133–148; BP diastolic 76–100; PULSE 59–69; RESP 16; TEMP 36.6; O2SAT 99–100; BMI 31.6
[2024-10-31] MEDS: LIDOCAINE 1%-EPI 1:100,000 20 ML INFILTRATI (07:34)
[2024-10-31] MEDS: BUPIVACAINE 0.5 %/EPI 1:200K INJECTION (07:34)
--- NOTE | 2024-10-31 09:41 | P.ORPRC_ITS ---
Procedure Note Date of procedure: 10/31/24 Procedure: Preop diagnosis: Left hand middle and ring finger stenosing tenosynovitis, ring finger volar retinacular ganglion cyst Postop diagnosis: Left hand middle and ring stenosing tenosynovitis finger, ring finger volar retinacular ganglion cyst Procedure: Left hand middle and ring finger A1 gladys release, ring finger volar retinacular ganglion cyst excision Anesthesia: Local Surgeon: John Telles MD stonecutter assistant: AMADA Higgins EBL: 2mL Complications: None Specimens: None Drains: None Preoperative antibiotics: None Indications: The patient has a history of left upper extremity middle and ring finger painful catching and locking. Additionally, he has a painful cyst located at the base of the ring finger. Despite appropriate non operative management including flexor tendon sheath corticosteroid injections they continue to have symptoms. Operative intervention was recommended. The risks, benefits alternatives and expected outcomes were discussed in detail. These included but were not limited to: Infection, bleeding, injury to blood vessel or nerve, venous thromboembolism. All questions were answered to their satisfaction. The patient was placed supine on the operating room table. Local anesthesia was established with 0.5% Marcaine with epinephrine and 2% lidocaine with epinephrine. The hand was prepped and draped in usual sterile fashion. A transverse incision was made in the distal palmar crease, centered between the base of the middle and ring fingers. Subcutaneous dissection was taken with the tenotomy scissors, through the palmar fascia to the flexor tendons of both fing ers. The A1 pulleys were released with the 15 blade and tenotomy scissors. Active flexion and extension of the fingers shows no catching or locking, no bowstringing of the flexor tendons. A separate oblique incision was made at the base of the ring finger. It was unnecessary to convert it to a Duong incision with an oblique arm in the other direction distally. Subcutaneous dissection was taken with tenotomy scissors to the flexor tendons. The volar retinacular ganglion cyst was encountered just distal to the A2 gladys. It was excised off of the flexor tendon sheath. It was full of clear, gelatinous fluid. A cuff of normal flexor tendon sheath was excised with the cyst to decrease the risk of recurrence. The wound was closed with interrupted nylon sutures. A dry dressing was ap plied. Sponge and needle counts were correct x 2. The patient tolerated the procedure well, there were no apparent complications. They were sent to same day surgery in satisfactory condition. Plan: Use of the hand as tolerates. Discontinue the intraoperative dressing on postoperative day 3 and may get the wound wet as tolerates. Follow up in the office in 2 weeks for a wound check and suture removal.
== END 2024-10-31 10:04 | disposition home or self-care (01) ==
PROVIDERS: PCP Family Medicine; Visit Provider Orthopaedic Surgery
PROC: (CPT 26055; principal; 2024-10-31 09:15)
DX: M65.842 Other synovitis and tenosynovitis, left hand (principal); M65.342 Trigger finger, left ring finger; M65.332 Trigger finger, left middle finger; M67.442 Ganglion, left hand
CPT/HCPCS: 26160; 26055 ×2; J3490